=== PATIENT | male | born 1970 | race African-American/Black ===

== ENCOUNTER → 2016-10-27 | Outpatient (CLI) | payer MEDICAID ==
[2016-05-22 13:59] VITALS: BP 122/102
[2016-10-27 07:17] LABS: BASOPHILS # (AUTO) 0.1 X10^3/uL (0.0-0.1); BASOPHILS % (AUTO) 1.1 % (0.2-1.0); EOSINOPHILS # (AUTO) 0.3 x10^3/uL (0.0-0.2); EOSINOPHILS % (AUTO) 3.4 % (0.9-2.9); HEMATOCRIT 45.3 % (42.0-54.0); HEMOGLOBIN 15.6 g/dL (13.5-18.0); LYMPHOCYTES # (AUTO) 3.2 X10^3/uL (1.3-2.9); LYMPHOCYTES % (AUTO) 40.4 % (21.0-51.0); MEAN CORPUSCULAR HEMOGLOBIN 31.6 pg (27.0-34.0); MEAN CORPUSCULAR HGB CONC 34.4 g/dL (33.0-35.0); MEAN CORPUSCULAR VOLUME 91.9 fL (80.0-100.0); MEAN PLATELET VOLUME 7.8 fL (7.4-11.0); MONOCYTES # (AUTO) 0.7 x10^3/uL (0.3-0.8); MONOCYTES % (AUTO) 8.5 % (0.0-13.0); NEUTROPHILS # (AUTO) 3.7 x10^3/uL (2.2-4.8); NEUTROPHILS % (AUTO) 46.6 % (42.0-75.0); PLATELET COUNT 235 X10^3/uL (150.0-450.0); RED BLOOD COUNT 4.93 X10^6/uL (4.7-6.0); RED CELL DISTRIBUTION WIDTH 13.7 % (11.6-16.5)
--- NOTE | 2016-10-27 07:29 | RAD ---
Three views of the lumbar spine Indication: Back pain Findings: There is anterior wedging of the L1 vertebral body with moderate spondylosis at T12-L1 messi pected to represent a chronic posttraumatic deformity/compression fracture; however correlation for point tenderness in this location is recommended to exclude acute on chronic injury. There is moderate multilevel spondylosis within the remaining lumbar spine. There is a grade 1 retro listhesis of L3. There is multilevel facet arthropathy most severely affecting the lower lumbar spin e. SI joints are intact. Mild degenerative change of the pubic symphysis joint. Impression: See above. Reported By:
[2016-10-27 07:37] LABS: ALANINE AMINOTRANSFERASE 27 Units/L (12-78); ALBUMIN 3.7 g/dL (3.4-5.0); ALKALINE PHOSPHATASE 98 Units/L (46-116); ASPARTATE AMINO TRANSFERASE 23 Units/L (15-37); BLOOD UREA NITROGEN 10 mg/dL (7-18); CALCIUM 8.8 mg/dL (8.5-10.1); CHOLESTEROL 179 mg/dL (0-200); CREATININE 1.84 mg/dL (0.70-1.30); GLUCOSE 109 mg/dL (65-99); HDL CHOLESTEROL 30 mg/dL (40-60); TOTAL PROTEIN 7.8 g/dL (6.4-8.2); TRIGLYCERIDES 161 mg/dL (0-150); eGFR BLACK RACES 51 (>60); eGFR NON BLACK RACES 42 (>60)
[2016-10-27 07:38] LABS: HEMOGLOBIN A1C 6.7 % (4.5-6.2)
[2016-10-27 07:42] LABS: CHLORIDE 106 mmol/L (98-107); SODIUM 136 mmol/L (136-145)
[2016-10-27 07:46] LABS: CREATININE,URINE 187.74 mg/dL (40-278)
[2016-10-27 07:47] LABS: MICROALBUMIN,URINE 127.6 mg/L
[2016-10-27 08:09] LABS: TOTAL PSA 0.61 ng/mL (0.13-4.0)
== END ==
LOC: LAB 06:49
PROVIDERS: ATTEND Nurse Practitioner Family
DX: Z00.00 Encounter for general adult medical examination without abnormal findings (principal); E10.9 Type 1 diabetes mellitus without complications; I10 Essential (primary) hypertension
CPT/HCPCS: 36415; 72100; 80053; 80061; 82043; 83036; 84153; 85025

== ENCOUNTER → 2016-11-17 | Outpatient (CLI) | payer MEDICAID ==
[2016-05-22 13:59] VITALS: BP 122/102
[2016-11-17 07:50] LABS: BASOPHILS # (AUTO) 0.1 X10^3/uL (0.0-0.1); BASOPHILS % (AUTO) 0.6 % (0.2-1.0); EOSINOPHILS # (AUTO) 0.3 x10^3/uL (0.0-0.2); EOSINOPHILS % (AUTO) 3.2 % (0.9-2.9); HEMATOCRIT 44.2 % (42.0-54.0); HEMOGLOBIN 15.4 g/dL (13.5-18.0); LYMPHOCYTES # (AUTO) 3.7 X10^3/uL (1.3-2.9); LYMPHOCYTES % (AUTO) 38.7 % (21.0-51.0); MEAN CORPUSCULAR HEMOGLOBIN 32.2 pg (27.0-34.0); MEAN CORPUSCULAR HGB CONC 34.7 g/dL (33.0-35.0); MEAN CORPUSCULAR VOLUME 92.7 fL (80.0-100.0); MONOCYTES # (AUTO) 0.7 x10^3/uL (0.3-0.8); MONOCYTES % (AUTO) 7.6 % (0.0-13.0); NEUTROPHILS # (AUTO) 4.8 x10^3/uL (2.2-4.8); NEUTROPHILS % (AUTO) 49.9 % (42.0-75.0); PLATELET COUNT 280 X10^3/uL (150.0-450.0); RED BLOOD COUNT 4.77 X10^6/uL (4.7-6.0); RED CELL DISTRIBUTION WIDTH 13.5 % (11.6-16.5); WHITE BLOOD COUNT 9.5 X10^3/uL (3.6-10.0)
[2016-11-17 07:58] LABS: ALANINE AMINOTRANSFERASE 22 Units/L (12-78); ALBUMIN 3.8 g/dL (3.4-5.0); ALKALINE PHOSPHATASE 94 Units/L (46-116); ASPARTATE AMINO TRANSFERASE 19 Units/L (15-37); BILIRUBIN,DIRECT 0.07 mg/dL (0-0.2); BLOOD UREA NITROGEN 20 mg/dL (7-18); CALCIUM 8.9 mg/dL (8.5-10.1); CARBON DIOXIDE 21.9 mmol/L (21-32); CHLORIDE 105 mmol/L (98-107); CHOL/HDL RATIO 5.2 (0.0-5.0); CHOLESTEROL 167 mg/dL (0-200); CREATININE 1.83 mg/dL (0.70-1.30); GLUCOSE 105 mg/dL (65-99); HDL CHOLESTEROL 32 mg/dL (40-60); SODIUM 138 mmol/L (136-145); TRIGLYCERIDES 155 mg/dL (0-150); eGFR BLACK RACES 51 (>60); eGFR NON BLACK RACES 42 (>60)
== END ==
LOC: LAB 06:50
PROVIDERS: ATTEND Physician Assistant
DX: I73.89 Other specified peripheral vascular diseases (principal)
CPT/HCPCS: 36415; 80048; 80061; 80076; 85025

== ENCOUNTER → 2016-11-20 | Outpatient (CLI) | payer MEDICAID ==
[2016-05-22 13:59] VITALS: BP 122/102
--- NOTE | 2016-11-20 13:26 | US ---
HISTORY: Chronic kidney disease. Study: Renal ultrasound Comparison: Renal ultrasound dated September 09, 2014. Technique: Multiple armos scale and color flow Doppler images of the kidneys were obtained. The rian on of the urinary bladder was evaluated as well. Findings: The right kidney is normal in echotexture and size. The right kidney measures 11.4 cm. No focal mass , hydronephrosis, or stones identified. 1.3 cm simple appearing cyst within the inferior pole of the right kidney appears unchanged given technique. The left kidney small measuring 3.0 cm and is nonfunctioning. No focal mass, hydronephrosis, or ston e can be seen within the left kidney. The region of the urinary bladder is grossly unremarkable. IMPRESSION: 1. Simple appearing cyst within the right kidney as above. The right kidney is otherwise unremarkab le. 2. Atrophic left kidney. Reported By:
== END ==
LOC: RAD 12:19
PROVIDERS: ATTEND Internal Medicine
DX: N18.3 Chronic kidney disease, stage 3 (moderate) (principal)
CPT/HCPCS: 76770

== ENCOUNTER → 2016-11-22 | Outpatient (CLI) | payer MEDICAID ==
[2016-05-22 13:59] VITALS: BP 122/102
[2016-11-22 07:03] LABS: BLOOD UREA NITROGEN 16 mg/dL (7-18); CALCIUM 8.7 mg/dL (8.5-10.1); CARBON DIOXIDE 23.3 mmol/L (21-32); CHLORIDE 105 mmol/L (98-107); CREATININE 1.66 mg/dL (0.70-1.30); GLUCOSE 92 mg/dL (65-99); SODIUM 137 mmol/L (136-145); eGFR BLACK RACES 57 (>60); eGFR NON BLACK RACES 47 (>60)
== END | disposition home or self-care (01) | DRG 948 ==
LOC: LAB 06:41
PROVIDERS: ATTEND Internal Medicine Cardiovascular Disease
DX: R79.89 Other specified abnormal findings of blood chemistry (principal); Z98.890 Other specified postprocedural states
CPT/HCPCS: 36415; 80048

== ENCOUNTER → 2016-11-29 | Outpatient (CLI) | payer MEDICAID ==
[2016-05-22 13:59] VITALS: BP 122/102
--- NOTE | 2016-11-29 10:33 | MRI ---
HISTORY: Low back pain. Study: MRI lumbar spine without contrast. Comparison: Lumbar spine series dated October 27, 2016 and renal ultrasound dated September 09 2014. Technique: Multiplanar multi-sequence MRI of the lumbar spine was obtained. Sagittal T1, sagittal T 2, and stir weighted images, axial T1, and axial T2 images were obtained. Findings: Anatomic alignment without acute fracture or listhesis. Multilevel disc desiccation with associated mild disk height loss and type 2 Modic endplate changes. The bone marrow signal is otherwise normal. The conus medullaris terminates at L2. Partially visualized 1.7 cm cystic lesion within the interpo lar right kidney. Remaining soft tissue structures appear normal. L1 -- L2: Broad-based disc bulge that extends into the lateral recesses causing moderate right and m ild left neural foraminal narrowing. No significant spinal canal stenosis. L2 -- L3: No significant disc bulge, neural foraminal narrowing, or spinal canal stenosis. L3 -- L4: Broad-based disc bulge that extends into the lateral recesses causing moderate to severe l eft and moderate right neural foraminal narrowing. No significant spinal canal stenosis. L4 -- L5: Broad-based disc bulge that extends into the lateral recesses causing moderate to severe l eft and moderate right neural foraminal narrowing. No significant spinal canal stenosis. L5 -- S1: Broad-based disc bulge that extends into the lateral recesses causing severe left and mode rate right neural foraminal narrowing. Spinal canal stenosis to 10 mm. There is displacement and com pression of the left S1 descending nerve root that otherwise demonstrates normal signal characterist ics. IMPRESSION: 1. Multilevel degenerative changes of the lumbar spine, which are worse at L3 through S1 with broad- based disc bulges causing moderate to severe neural foraminal narrowing. Spinal canal stenosis to 10 mm. 2. Indeterminate 1.7 cm cystic lesion within the right kidney as above. While this likely represents an enlarging renal cyst, this is indeterminate. Recommend followup renal ultrasound for further maisha racterization. Reported By:
--- NOTE | 2016-11-29 12:15 | MRI ---
HISTORY: Thoracic spine pain. Study: MRI thoracic spine without contrast. Comparison: CT thoracic spine dated July 20, 2010. Technique: Multiplanar/multi sequence imaging of the thoracic spine without contrast. Findings: Anatomic alignment without fracture or listhesis. Multilevel disc desiccation without significant di sc height loss. The visualized bone marrow demonstrates normal signal characteristics. No significan t neural foraminal narrowing or spinal canal stenosis. The visualized spinal cord demonstrates riya l course, caliber, and signal characteristics. The visualized soft tissues are unremarkable. IMPRESSION: No significant neural foraminal narrowing or spinal canal stenosis. Reported By:
== END | disposition home or self-care (01) ==
LOC: RAD 07:53
PROVIDERS: ATTEND Nurse Practitioner Family
DX: M51.26 Other intervertebral disc displacement, lumbar region (principal); M51.27 Other intervertebral disc displacement, lumbosacral region
CPT/HCPCS: 72146; 72148

== ENCOUNTER → 2016-12-06 | Outpatient (CLI) | payer MEDICAID ==
[2016-05-22 13:59] VITALS: BP 122/102
[2016-12-06 07:59] LABS: BLOOD UREA NITROGEN 16 mg/dL (7-18); CALCIUM 8.5 mg/dL (8.5-10.1); CARBON DIOXIDE 26.6 mmol/L (21-32); CHLORIDE 105 mmol/L (98-107); CREATININE 1.73 mg/dL (0.70-1.30); GLUCOSE 107 mg/dL (65-99); SODIUM 140 mmol/L (136-145); eGFR BLACK RACES 55 (>60); eGFR NON BLACK RACES 45 (>60)
== END ==
LOC: LAB 07:26
PROVIDERS: ATTEND Internal Medicine Cardiovascular Disease
DX: R94.4 Abnormal results of kidney function studies (principal)
CPT/HCPCS: 36415; 80048

== ENCOUNTER → 2017-05-17 | Outpatient (CLI) | payer MEDICAID ==
[2016-05-22 13:59] VITALS: BP 122/102
== END ==
LOC: LAB 16:42
PROVIDERS: ATTEND Nurse Practitioner Family
DX: I10 Essential (primary) hypertension (principal)
CPT/HCPCS: 36415; 84132

== ENCOUNTER → 2017-06-04 | Outpatient (CLI) | payer MEDICAID ==
[2016-05-22 13:59] VITALS: BP 122/102
[2017-06-04 10:04] LABS: ALBUMIN 3.7 g/dL (3.4-5.0); BLOOD UREA NITROGEN 14 mg/dL (7-18); CALCIUM 8.8 mg/dL (8.5-10.1); CARBON DIOXIDE 22.1 mmol/L (21-32); CHLORIDE 103 mmol/L (98-107); COR NA(FOR HYPERGLY) 142 mmol/L (136-145); CREATININE 2.04 mg/dL (0.70-1.30); PHOSPHORUS 2.5 mg/dL (2.6-4.7); SODIUM 137 mmol/L (136-145); eGFR BLACK RACES 45 (>60); eGFR NON BLACK RACES 37 (>60)
== END ==
LOC: LAB 09:32
PROVIDERS: ATTEND Internal Medicine Nephrology
DX: E11.9 Type 2 diabetes mellitus without complications (principal); I10 Essential (primary) hypertension; E78.4 Other hyperlipidemia
CPT/HCPCS: 36415; 80069

== ENCOUNTER → 2017-07-03 | Outpatient (CLI) | payer MEDICAID ==
[2016-05-22 13:59] VITALS: BP 122/102
[2017-07-03 07:26] LABS: BASOPHILS # (AUTO) 0.1 X10^3/uL (0.0-0.1); BASOPHILS % (AUTO) 1.2 % (0.2-1.0); EOSINOPHILS # (AUTO) 0.4 x10^3/uL (0.0-0.2); EOSINOPHILS % (AUTO) 4.1 % (0.9-2.9); HEMATOCRIT 43.9 % (42.0-54.0); HEMOGLOBIN 15.2 g/dL (13.5-18.0); LYMPHOCYTES # (AUTO) 4.2 X10^3/uL (1.3-2.9); MEAN CORPUSCULAR HEMOGLOBIN 32.1 pg (27.0-34.0); MEAN CORPUSCULAR HGB CONC 34.6 g/dL (33.0-35.0); MEAN CORPUSCULAR VOLUME 92.8 fL (80.0-100.0); MEAN PLATELET VOLUME 7.9 fL (7.4-11.0); MONOCYTES # (AUTO) 0.8 x10^3/uL (0.3-0.8); MONOCYTES % (AUTO) 9.2 % (0.0-13.0); NEUTROPHILS # (AUTO) 3.6 x10^3/uL (2.2-4.8); NEUTROPHILS % (AUTO) 39.5 % (42.0-75.0); PLATELET COUNT 236 X10^3/uL (150.0-450.0); RED BLOOD COUNT 4.73 X10^6/uL (4.7-6.0); RED CELL DISTRIBUTION WIDTH 14.1 % (11.6-16.5)
[2017-07-03 07:54] LABS: HEMOGLOBIN A1C 6.8 %
[2017-07-03 07:55] LABS: ALANINE AMINOTRANSFERASE 18 Units/L (12-78); ALBUMIN 3.8 g/dL (3.4-5.0); ALKALINE PHOSPHATASE 86 Units/L (46-116); ASPARTATE AMINO TRANSFERASE 19 Units/L (15-37); BLOOD UREA NITROGEN 18 mg/dL (7-18); CALCIUM 8.7 mg/dL (8.5-10.1); CARBON DIOXIDE 25.6 mmol/L (21-32); CHLORIDE 106 mmol/L (98-107); CHOL/HDL RATIO 6.1 (0.0-5.0); CHOLESTEROL 183 mg/dL (0-200); COR NA(FOR HYPERGLY) 140 mmol/L (136-145); CREATININE 1.97 mg/dL (0.70-1.30); HDL CHOLESTEROL 30 mg/dL (40-60); SODIUM 140 mmol/L (136-145); TOTAL PROTEIN 7.6 g/dL (6.4-8.2); TRIGLYCERIDES 190 mg/dL (0-150); eGFR BLACK RACES 47 (>60); eGFR NON BLACK RACES 39 (>60)
[2017-07-03 09:22] LABS: CREATININE,URINE 155.79 mg/dL (40-278); MICROALBUMIN,URINE 74.3 mg/L
== END ==
LOC: LAB 07:00
PROVIDERS: ATTEND Psychiatry & Neurology Neurology
DX: R35.8 Other polyuria (principal); E11.21 Type 2 diabetes mellitus with diabetic nephropathy; I10 Essential (primary) hypertension
CPT/HCPCS: 36415; 80053; 80061; 82043; 83036; 84153; 85025